=== PATIENT | female | born 1955 | race Hispanic/Latino ===

== ENCOUNTER 2021-07-05 20:39 | Emergency (ER) | payer OTHER ==
[~2021-07-05] VITALS: Ht 157.5 cm; Wt 100.7 kg
[2021-07-05 21:06] LABS: BASOPHILS % (AUTO) 0.3 % (0.0-5.0); EOSINOPHILS % (AUTO) 0.4 % (0.0-8.0); HEMATOCRIT 41.6 % (36-48); LYMPHOCYTES % (AUTO) 7.8 % (21.0-51.0); MEAN CORPUSCULAR HGB CONC 31.5 g/dL (32.0-36.0); MEAN CORPUSCULAR VOLUME 85.6 fL (79-99); MONOCYTES % (AUTO) 2.9 % (3.0-13.0); NEUTROPHILS % (AUTO) 88.2 % (40.0-77.0); PLATELET COUNT (AUTO) 306 K/uL (130-400); RED BLOOD CELL COUNT(AUTO) 4.86 MIL/uL (4.00-5.50); RED CELL DISTRIBUTION WIDTH 13.7 % (11.0-15.5); WHITE BLOOD COUNT (AUTO) 13.9 K/uL (4.8-10.8)
[2021-07-05 21:33] LABS: CREATININE 0.8 mg/dL (0.5-1.5); POTASSIUM 3.8 mmol/L (3.5-5.1)
[2021-07-05 21:39] LABS: ALBUMIN 4.6 g/dL (3.5-5.0); BILIRUBIN,TOTAL 0.4 mg/dL (0.2-1.0); TOTAL PROTEIN, SERUM 8.9 g/dL (6.0-8.3)
[2021-07-05] MEDS ORDERED: ONDANSETRON 4MG INJ IVP ONE (22:30)
[2021-07-05] MEDS ORDERED: MORPHINE 4 MG SYG IVP ONE (22:30)
[2021-07-05 22:36] LABS: APPEARANCE,URINE Clear (CLEAR); BILIRUBIN,URINE Negative (NEGATIVE); COLOR,URINE Yellow (YELLOW); GLUCOSE, URINE (UA) Negative (NEGATIVE); KETONES,URINE 15 mg/dL (NEGATIVE); LEUKOCYTE ESTERASE ,URINE Trace (NEGATIVE); NITRATE,URINE Negative (NEGATIVE); OCCULT BLOOD,URINE Moderate (NEGATIVE); PROTEIN,URINE POS 1+ mg/dL (NEGATIVE); UROBILINOGEN,URINE 0.2 mg/dL (0.2-1.0)
[2021-07-05] MEDS ORDERED: ONDANSETRON 4MG INJ ONE (22:36)
[2021-07-05] MEDS ORDERED: MORPHINE 4 MG SYG ONE (22:37)
[2021-07-05 22:50] LABS: BACTERIA,URINE Rare /HPF (None Seen); SQUAMOUS EPITHELIAL CELL,UR Few /HPF (0-2)
[2021-07-06] MEDS ORDERED: LISINOPRIL 10 MG TABLET ONE (01:20)
[2021-07-06] MEDS ORDERED: LISINOPRIL 10 MG TABLET PO SCH (01:30)
[2021-07-06] MEDS ORDERED: ONDANSETRON 4MG INJ ONE (02:49)
[2021-07-06 02:56] VITALS: BP 157/73
[2021-07-06] MEDS ORDERED: ONDANSETRON 4MG INJ IVP ONE (03:00)
[2021-07-07] MEDS ORDERED: LISI10TA24 PO (23:13)
[2021-07-07] MEDS ORDERED: ATOR10TA69 PO (23:13)
[2021-07-07] MEDS ORDERED: MULT-1203 PO (23:14)
== END 2021-07-06 03:17 | disposition home or self-care (01) ==
LOC: EDH 20:39
DX: K80.70 Calculus of gallbladder and bile duct without cholecystitis without obstruction (principal); E78.00 Pure hypercholesterolemia, unspecified; I10 Essential (primary) hypertension
CPT/HCPCS: 36415; 74176; 80053; 81001; 83690; 85025; 96374; 96375; 96376; 99285; J2270; J2405 ×2

== ENCOUNTER 2021-07-07 12:37 | Inpatient (IN) | payer OTHER ==
[~2021-07-07] VITALS: Ht 160 cm; Wt 98.7 kg
[2021-07-07 13:20] LABS: BASOPHILS % (AUTO) 0.2 % (0.0-5.0); HEMATOCRIT 39.1 % (36-48); LYMPHOCYTES % (AUTO) 5.6 % (21.0-51.0); MEAN CORPUSCULAR HEMOGLOBIN 26.9 pg (27.0-33.0); MEAN CORPUSCULAR HGB CONC 32.2 g/dL (32.0-36.0); MEAN CORPUSCULAR VOLUME 83.5 fL (79-99); MONOCYTES % (AUTO) 6.6 % (3.0-13.0); PLATELET COUNT (AUTO) 255 K/uL (130-400); RED BLOOD CELL COUNT(AUTO) 4.68 MIL/uL (4.00-5.50); WHITE BLOOD COUNT (AUTO) 23.5 K/uL (4.8-10.8)
[2021-07-07 13:24] LABS: APPEARANCE,URINE Cloudy (CLEAR); BILIRUBIN,URINE Small (NEGATIVE); COLOR,URINE Dark Yellow (YELLOW); GLUCOSE, URINE (UA) Negative (NEGATIVE); KETONES,URINE 15 mg/dL (NEGATIVE); LEUKOCYTE ESTERASE ,URINE Small (NEGATIVE); NITRATE,URINE Negative (NEGATIVE); OCCULT BLOOD,URINE Small (NEGATIVE); PH,URINE 5.5 (5.0-8.0); PROTEIN,URINE POS 2+ mg/dL (NEGATIVE)
[2021-07-07 13:39] LABS: CREATININE 0.8 mg/dL (0.5-1.5); POTASSIUM 3.6 mmol/L (3.5-5.1)
[2021-07-07 13:44] LABS: ALBUMIN 3.5 g/dL (3.5-5.0); BILIRUBIN,TOTAL 1.3 mg/dL (0.2-1.0); TOTAL PROTEIN, SERUM 7.9 g/dL (6.0-8.3)
[2021-07-07 14:00] LABS: BACTERIA,URINE Few /HPF (None Seen); RBC,URINE 0-1 /HPF (0-1); SQUAMOUS EPITHELIAL CELL,UR Few /HPF (0-2)
[2021-07-07] MEDS ORDERED: MAG/ALUM/SIMETH 30 ML UDCUP PO ONE (14:00)
[2021-07-07] MEDS ORDERED: FAMOTIDINE 20MG TAB PO ONE (14:00)
[2021-07-07] MEDS ORDERED: 0.9%NACL 1000ML 1,000 ML IV ONE (14:00)
[2021-07-07] MEDS ORDERED: ONDANSETRON 4MG INJ IVP ONE (14:00)
[2021-07-07 14:01] LABS: CRP QUANTITATIVE 290.1 mg/L (0.00-9.0)
[2021-07-07] MEDS ORDERED: METRONIDAZOLE 500 MG TABLET PO ONE (14:30)
[2021-07-07] MEDS ORDERED: ZOSYN 3.375GM +NS 50ML IV SCH (14:30)
[2021-07-07] MEDS ORDERED: LACTULOSE 20 GM/30 ML UDCUP PO PRN (16:30)
[2021-07-07] MEDS ORDERED: GUAIFENESIN-DM 200/20 MG 10 ML PO PRN (16:30)
[2021-07-07] MEDS ORDERED: NITROGLYCERIN 0.4 MG SL TAB SL PRN (16:30)
[2021-07-07] MEDS ORDERED: MAG/ALUM/SIMETH 30 ML UDCUP PO PRN (16:30)
[2021-07-07] MEDS ORDERED: MORPHINE 2 MG SYG IV PRN (16:30)
[2021-07-07] MEDS ORDERED: ONDANSETRON 4MG INJ IV PRN (16:30)
[2021-07-07] MEDS ORDERED: ACETAMINOPHEN 325 MG TAB PO PRN (16:30)
[2021-07-07] MEDS ORDERED: HYDRALAZINE 20MG/ML VIAL IV PRN (16:30)
[2021-07-07] MEDS ORDERED: DIPHENHYDRAMINE HCL 25 MG CAPSULE PO PRN (16:30)
[2021-07-07] MEDS ORDERED: MORPHINE 4 MG SYG IV PRN (16:30)
[2021-07-07] MEDS: 0.9%NACL 1000ML 1,000 ML IV SCH (17:21)
[2021-07-07] MEDS: ZOSYN 3.375GM+NS 50ML 50 ML IV SCH (21:48)
[2021-07-07 22:45] VITALS: BP 132/39
[2021-07-07] MEDS ORDERED: ATOR10TA69 PO (23:13)
[2021-07-07] MEDS ORDERED: LISI10TA24 PO (23:13)
[2021-07-07] MEDS ORDERED: MULT-1203 PO (23:14)
[2021-07-08 04:00] VITALS: BP 106/45
[2021-07-08] MEDS: 0.9%NACL 1000ML 1,000 ML IV SCH ×2 (04:57→22:12)
[2021-07-08] MEDS: ZOSYN 3.375GM+NS 50ML 50 ML IV SCH ×3 (04:57→22:12)
[2021-07-08 08:00] VITALS: BP 104/36
[2021-07-08 10:00] LABS: CREATININE 0.7 mg/dL (0.5-1.5); POTASSIUM 3.5 mmol/L (3.5-5.1)
[2021-07-08 11:24] VITALS: BP 107/37
[2021-07-08 12:59] LABS: BASOPHILS % (AUTO) 0.2 % (0.0-5.0); EOSINOPHILS % (AUTO) 0.1 % (0.0-8.0); HEMATOCRIT 35.2 % (36-48); LYMPHOCYTES % (AUTO) 6.6 % (21.0-51.0); MEAN CORPUSCULAR HEMOGLOBIN 27.3 pg (27.0-33.0); MEAN CORPUSCULAR HGB CONC 31.8 g/dL (32.0-36.0); MEAN CORPUSCULAR VOLUME 85.6 fL (79-99); NEUTROPHILS % (AUTO) 86.6 % (40.0-77.0); PLATELET COUNT (AUTO) 218 K/uL (130-400); RED BLOOD CELL COUNT(AUTO) 4.11 MIL/uL (4.00-5.50); RED CELL DISTRIBUTION WIDTH 14.2 % (11.0-15.5); WHITE BLOOD COUNT (AUTO) 16.3 K/uL (4.8-10.8)
[2021-07-08 16:00] VITALS: BP 123/46
[2021-07-08 20:06] VITALS: BP 140/46
[2021-07-08 23:32] VITALS: BP 135/47
[2021-07-09] VITALS (17 sets, daily range): BP systolic 128–159; BP diastolic 47–76
[2021-07-09] MEDS: ZOSYN 3.375GM+NS 50ML 50 ML IV SCH ×4 (05:56→22:25)
[2021-07-09] MEDS ORDERED: DEXAMETHASONE SOD PHOSPHATE 10MG/ML 1ML VIAL ONE (13:04)
[2021-07-09] MEDS ORDERED: ONDANSETRON 4MG INJ ONE (13:04)
[2021-07-09] MEDS ORDERED: LIDOCAINE PF 100MG/5ML (2%) SYRINGE 5ML ONE (13:04)
[2021-07-09] MEDS ORDERED: NEOSTIGMINE 5MG/5ML SYR IV ONE (13:04)
[2021-07-09] MEDS ORDERED: PROPOFOL 10 MG/ML 20ML VIAL IV ONE (13:04)
[2021-07-09] MEDS ORDERED: GLYCOPYRROLATE 1 MG/5 ML SYRINGE ONE (13:04)
[2021-07-09] MEDS ORDERED: SUCCINYLCHOLINE 200MG/10ML SYR ONE (13:04)
[2021-07-09] MEDS ORDERED: FENTANYL CITRATE PF 50 MCG/1 ML 2ML VIAL ONE (13:05)
[2021-07-09] MEDS ORDERED: MIDAZOLAM HCL 1 MG/ML 2ML VIAL ONE (13:05)
[2021-07-09] MEDS ORDERED: ROCURONIUM 10MG/1ML SYR 10 MG/ML ML ONE (13:05)
[2021-07-09] MEDS ORDERED: LIDOCAINE HCL 1% MDV 50ML VIAL ONE (13:15)
[2021-07-09] MEDS ORDERED: BUPIVACAINE/PF 0.5% 30ML VIAL ONE (13:15)
[2021-07-09] MEDS ORDERED: PHENYLEPHRINE HCL 10 MG/ML 1ML VIAL IV ONE (13:47)
[2021-07-09] MEDS ORDERED: FENTANYL CITRATE PF 50 MCG/1 ML 5ML AMP IV ONE (14:30)
[2021-07-09] MEDS: 0.9%NACL 1000ML 1,000 ML IV SCH ×2 (15:51→18:36)
[2021-07-09] MEDS ORDERED: MEPERIDINE-PF 25 MG/ML SYG ONE (17:22)
[2021-07-10] VITALS: BP 136/58
[2021-07-10 04:00] VITALS: BP 133/57
[2021-07-10] MEDS: 0.9%NACL 1000ML 1,000 ML IV SCH (04:30)
[2021-07-10] MEDS: ZOSYN 3.375GM+NS 50ML 50 ML IV SCH ×2 (04:51→13:00)
[2021-07-10 09:48] LABS: ALBUMIN 2.7 g/dL (3.5-5.0); BILIRUBIN,DIRECT 0.2 mg/dL (0.0-0.3); BILIRUBIN,TOTAL 0.5 mg/dL (0.2-1.0)
[2021-07-10 10:08] VITALS: BP 143/56
[2021-07-10 11:13] LABS: BASOPHILS % (AUTO) 0.1 % (0.0-5.0); HEMATOCRIT 34.5 % (36-48); LYMPHOCYTES % (AUTO) 6.8 % (21.0-51.0); MEAN CORPUSCULAR HEMOGLOBIN 27.1 pg (27.0-33.0); MEAN CORPUSCULAR HGB CONC 32.2 g/dL (32.0-36.0); MEAN CORPUSCULAR VOLUME 84.1 fL (79-99); NEUTROPHILS % (AUTO) 87.6 % (40.0-77.0); PLATELET COUNT (AUTO) 280 K/uL (130-400); RED CELL DISTRIBUTION WIDTH 13.8 % (11.0-15.5); WHITE BLOOD COUNT (AUTO) 12.9 K/uL (4.8-10.8)
[2021-07-10 11:32] LABS: CREATININE 0.8 mg/dL (0.5-1.5); POTASSIUM 3.1 mmol/L (3.5-5.1)
[2021-07-10] MEDS ORDERED: AMOX-429 PO (13:46)
[2021-07-10] MEDS ORDERED: POTA10CA44 PO (13:46)
[2021-07-10] MEDS ORDERED: KCL 20 MEQ ERTAB PO SCH (14:00)
[2021-07-10 14:23] VITALS: BP 146/58
== END 2021-07-10 17:00 | disposition home or self-care (01) | DRG 418 ==
LOC: EDH 12:37 → EDHIP 16:02 → INTOOBSV 16:16 → UNDOADMIN 16:16 → EDHIP 16:16 → OBSVTOIN 16:16 → 3CH 21:15
PROVIDERS: ADMIT Hospitalist; ATTEND Hospitalist
PROC: 0FT44ZZ Resection of Gallbladder, Percutaneous Endoscopic Approach (ICD-10-PCS; principal; 2021-07-09 13:55)
DX: K80.13 Calculus of gallbladder with acute and chronic cholecystitis with obstruction (principal); N39.0 Urinary tract infection, site not specified; E87.1 Hypo-osmolality and hyponatremia; I10 Essential (primary) hypertension; E78.5 Hyperlipidemia, unspecified; Z20.822 Contact with and (suspected) exposure to COVID-19; E87.6 Hypokalemia; E78.00 Pure hypercholesterolemia, unspecified; K66.0 Peritoneal adhesions (postprocedural) (postinfection)
CPT/HCPCS: 36415; 71045; 74176; 74181; 76705; 78226; 80048; 80053; 80076; 81001; 83690; 84484; 85025; 86140; 87040; 87077; 87088; 87186; 87635; 87804; 88304; 93005; 96374; 96375; 96376; A9537; C9803; G0378; J0330; J1100; J2001; J2175; J2250; J2270; J2370; J2405; J2543; J2704; J2710; J3010; J3490; J7030